=== PATIENT | male | born 1960 | race Two or more races ===

== ENCOUNTER 2016-09-10 10:12 | Inpatient (IN) | payer MEDICARE, OTHER ==
[~2016-09-10] VITALS: Ht 180.3 cm; Wt 105.2 kg
[~2016-09-10 10:12] MED LIST: METF500T4 PO; QUET400T PO; RISP2TAB23 PO; TEMA30CA PO
[2016-09-10 10:29] LABS: BASOPHILS # (AUTO) 0.1 /CMM (0.0-0.2); BASOPHILS % (AUTO) 1.9 % (0.0-2.0); DIFF TOTAL % 100 %; EOSINOPHILS % (AUTO) 0.4 % (0.0-6.0); HEMATOCRIT 47 % (39-51); HEMOGLOBIN 15.3 g/dL (13.5-17.5); LYMPHOCYTES # (AUTO) 0.8 /CMM (0.8-4.8); LYMPHOCYTES % (AUTO) 13.7 % (20.0-44.0); MEAN CORPUSCULAR HEMOGLOBIN 28 PG (26.0-33.0); MEAN CORPUSCULAR HGB CONC 32 g/dl (31.0-36.0); MEAN CORPUSCULAR VOLUME 86 fL (80-96); MONOCYTES # (AUTO) 0.7 /CMM (0.1-1.30); MONOCYTES % (AUTO) 12.8 % (2.0-12.0); NEUTROPHILS # (AUTO) 4.2 /CMM (1.8-8.9); NEUTROPHILS % (AUTO) 71.2 % (43.0-81.0); PLATELET COUNT (AUTO) 145 /CMM (150-450); RED BLOOD CELL COUNT(AUTO) 5.49 MIL/uL (4.5-6.0); WHITE BLOOD COUNT (AUTO) 5.8 K/uL (4.3-11.0)
[2016-09-10 10:36] LABS: ANION GAP 15 (5-14); CALCIUM, SERUM 9.3 mg/dL (8.5-10.1); CARBON DIOXIDE 29 mmol/L (21-32); CHLORIDE 95 mmol/L (98-107); CREATININE 0.9 mg/dL (0.6-1.3); GFR 87 mL/min (>60); GLUCOSE 187 mg/dL (74-106); POTASSIUM 4.3 mmol/L (3.5-5.1); SODIUM SERUM 134 mmol/L (136-145); UREA NITROGEN, BLOOD 15 mg/dL (7-18)
[2016-09-10 10:42] LABS: ACETAMINOPHEN 0 ug/ml (10-30); ALANINE AMINOTRANSFERASE 40 U/L (12-78); ALBUMIN 3.6 g/dL (3.4-5.0); ASPARTATE AMINOTRANSFERASE 24 U/L (15-37); BILIRUBIN,DIRECT 0.2 mg/dL (0.0-0.2); INDIRECT BILIRUBIN 0.8 mg/dL (0.0-1.1); SALICYLATE 1.3 mg/dL (2.8-20.0); TOTAL PROTEIN, SERUM 7.1 g/dL (6.4-8.2)
[2016-09-10] MEDS ORDERED: ESOM40CA PO (10:48)
[2016-09-10] MEDS ORDERED: SITA100T PO (10:48)
[2016-09-10] MEDS ORDERED: VILA10TA PO (10:48)
[2016-09-10] MEDS ORDERED: LISI-603 PO (10:48)
[2016-09-10] MEDS ORDERED: ROSU10TA PO (10:48)
[2016-09-10] MEDS ORDERED: LEVO25TA9 PO (10:48)
[2016-09-10] MEDS ORDERED: VENL150C58 PO (10:48)
[2016-09-10] MEDS ORDERED: DISU250T7 PO (10:48)
[2016-09-10 12:13] LABS: KETONES,URINE >=160 (NEGATIVE); LEUKOCYTE ESTERASE ,URINE Negative (NEGATIVE); PH,URINE 6.5 (5.0-8.0)
[2016-09-10 12:16] LABS: ADD UA MICROSCOPIC YES
[2016-09-10 12:19] LABS: ADD URINE CULTURE NO; WBC,URINE 0-2 /HPF (0-3)
[2016-09-10 14:15] LABS: CANNABINOID, URINE NEGATIVE (NEGATIVE); PHENCYCLIDINE SCREEN,URINE NEGATIVE (NEGATIVE)
[2016-09-10] MEDS ORDERED: DEXTROSE 50%-WATER 50 ML DISP.SYRIN IV PRN (14:30)
[2016-09-10 15:45] VITALS: BP 143/86
[2016-09-10 16:11] VITALS: BP 163/95
[2016-09-10] MEDS ORDERED: MAGNESIUM HYDROXIDE 30 ML UDC PO PRN (16:30)
[2016-09-10] MEDS ORDERED: MAG HYDROX/AL HYDROX/SIMETH 30 ML UDC PO PRN (16:30)
[2016-09-10] MEDS: BLOOD SUGAR DIAGNOSTIC 1 EACH STRIP VI SCH ×2 (16:53→21:13)
[2016-09-10] MEDS: INSULIN REGULAR, HUMAN 100 UNIT/ML 3 ML VIAL SQ PRN (16:56)
[2016-09-10] MEDS: QUETIAPINE FUMARATE 100 MG TABLET PO SCH (17:04)
[2016-09-10] MEDS: risperiDONE 1 MG TABLET PO SCH (17:04)
[2016-09-10] MEDS: METFORMIN 500 MG TABLET PO SCH (17:04)
[2016-09-10] MEDS: clonazePAM 0.5 MG TABLET PO PRN (19:18)
[2016-09-10 20:01] VITALS: BP 108/74
[2016-09-10] MEDS: ATORVASTATIN 10 MG TABLET PO SCH (21:10)
[2016-09-10 23:00] VITALS: BP 133/81
[2016-09-11 07:29] LABS: ALBUMIN 3.4 g/dL (3.4-5.0); CALCIUM, SERUM 9.4 mg/dL (8.5-10.1); TOTAL PROTEIN, SERUM 6.8 g/dL (6.4-8.2)
[2016-09-11 08:00] VITALS: BP 113/75
[2016-09-11] MEDS: INSULIN REGULAR, HUMAN 100 UNIT/ML 3 ML VIAL SQ PRN ×3 (08:24→17:31)
[2016-09-11] MEDS: BLOOD SUGAR DIAGNOSTIC 1 EACH STRIP VI SCH ×4 (08:26→21:24)
[2016-09-11] MEDS: LEVOTHYROXINE SODIUM 25 MCG TABLET PO SCH (08:34)
[2016-09-11] MEDS: PANTOPRAZOLE 40 MG TABLET.DR PO SCH (08:34)
[2016-09-11] MEDS: VENLAFAXINE XR 150 MG CAP.SR.24H PO SCH (08:34)
[2016-09-11] MEDS: METFORMIN 500 MG TABLET PO SCH ×2 (08:34→17:33)
[2016-09-11] MEDS ORDERED: Medication Not On Formulary EA (Rosuvastatin Calcium (Crestor) 10 MG) PO SCH (09:00)
[2016-09-11] MEDS ORDERED: DISULFIRAM 250 MG TABLET PO SCH (09:00)
[2016-09-11] MEDS ORDERED: Medication Not On Formulary EA (Esomeprazole Mag Trihydrate (Nexium) 40 MG) PO SCH (09:00)
[2016-09-11] MEDS: LISINOPRIL (20MG) 20 MG TABLET PO SCH ×2 (09:00→17:33)
[2016-09-11 16:00] VITALS: BP 122/75
[2016-09-11 18:25] VITALS: BP 129/80
[2016-09-11] MEDS: QUETIAPINE FUMARATE 100 MG TABLET PO SCH (18:25)
[2016-09-11] MEDS: risperiDONE 1 MG TABLET PO SCH (18:25)
[2016-09-11 20:10] VITALS: BP 131/73
[2016-09-11] MEDS: ATORVASTATIN 10 MG TABLET PO SCH (21:23)
[2016-09-11] MEDS: TEMAZEPAM 7.5 MG CAPSULE PO PRN (21:28)
[2016-09-11] MEDS: *INSULIN REGULAR(HUMULIN R)HUM 100 UNIT/ML VIAL SQ PRN (21:31)
[2016-09-12] MEDS: BLOOD SUGAR DIAGNOSTIC 1 EACH STRIP VI SCH ×4 (07:30→21:03)
[2016-09-12] MEDS: PANTOPRAZOLE 40 MG TABLET.DR PO SCH (07:30)
[2016-09-12] MEDS: LEVOTHYROXINE SODIUM 25 MCG TABLET PO SCH (07:30)
[2016-09-12 08:00] VITALS: BP 126/72
[2016-09-12] MEDS: LISINOPRIL (20MG) 20 MG TABLET PO SCH (09:27)
[2016-09-12] MEDS: VENLAFAXINE XR 150 MG CAP.SR.24H PO SCH (09:27)
[2016-09-12] MEDS: METFORMIN 500 MG TABLET PO SCH ×2 (09:27→17:57)
[2016-09-12] MEDS: INSULIN REGULAR, HUMAN 100 UNIT/ML 3 ML VIAL SQ PRN ×2 (12:39→18:52)
[2016-09-12] MEDS: clonazePAM 0.5 MG TABLET PO PRN (12:44)
[2016-09-12 12:49] LABS: CHOLESTEROL 205 mg/dL (<200); HDL CHOLESTEROL 56 mg/dL (40-60); LDL 123 mg/dL (0-99); TRIGLYCERIDES 185 mg/dL (30-150)
[2016-09-12 16:09] VITALS: BP 116/67
[2016-09-12] MEDS: ACETAMINOPHEN 325 MG TABLET PO PRN (17:57)
[2016-09-12] MEDS: QUETIAPINE FUMARATE 100 MG TABLET PO SCH (18:04)
[2016-09-12] MEDS: risperiDONE 1 MG TABLET PO SCH (18:04)
[2016-09-12] MEDS: *INSULIN REGULAR(HUMULIN R)HUM 100 UNIT/ML VIAL SQ PRN ×2 (18:28→21:33)
[2016-09-12 20:07] VITALS: BP 90/58
[2016-09-12] MEDS: ATORVASTATIN 10 MG TABLET PO SCH (21:03)
[2016-09-12 22:00] VITALS: BP 100/62
[2016-09-12] MEDS: TEMAZEPAM 7.5 MG CAPSULE PO PRN (22:09)
[2016-09-13] MEDS: BLOOD SUGAR DIAGNOSTIC 1 EACH STRIP VI SCH ×4 (07:15→22:40)
[2016-09-13] MEDS: INSULIN REGULAR, HUMAN 100 UNIT/ML 3 ML VIAL SQ PRN ×2 (07:30→17:36)
[2016-09-13] MEDS: VENLAFAXINE XR 150 MG CAP.SR.24H PO SCH (08:43)
[2016-09-13] MEDS: PANTOPRAZOLE 40 MG TABLET.DR PO SCH (08:43)
[2016-09-13] MEDS: LISINOPRIL (20MG) 20 MG TABLET PO SCH (08:43)
[2016-09-13] MEDS: LEVOTHYROXINE SODIUM 25 MCG TABLET PO SCH (08:43)
[2016-09-13] MEDS: METFORMIN 500 MG TABLET PO SCH ×2 (08:43→16:28)
[2016-09-13] MEDS: clonazePAM 0.5 MG TABLET PO PRN (08:46)
[2016-09-13] MEDS: ACETAMINOPHEN 325 MG TABLET PO PRN ×2 (08:46→16:28)
[2016-09-13 09:01] VITALS: BP 113/62
[2016-09-13 16:00] VITALS: BP 128/68
[2016-09-13] MEDS: risperiDONE 1 MG TABLET PO SCH (17:12)
[2016-09-13] MEDS: QUETIAPINE FUMARATE 100 MG TABLET PO SCH (17:12)
[2016-09-13] MEDS: MENTHOL/CETYLPYRD (CEPACOL) 1 LOZ LOZENGE PO PRN (17:28)
[2016-09-13 20:00] VITALS: BP 101/61
[2016-09-13] MEDS: ATORVASTATIN 10 MG TABLET PO SCH (22:40)
[2016-09-13] MEDS: *INSULIN REGULAR(HUMULIN R)HUM 100 UNIT/ML VIAL SQ PRN (22:43)
[2016-09-13] MEDS: TEMAZEPAM 7.5 MG CAPSULE PO PRN (23:12)
[2016-09-14] MEDS: ACETAMINOPHEN 325 MG TABLET PO PRN ×3 (04:26→21:02)
[2016-09-14 08:00] VITALS: BP 122/60
[2016-09-14] MEDS: BLOOD SUGAR DIAGNOSTIC 1 EACH STRIP VI SCH ×4 (08:02→21:42)
[2016-09-14] MEDS: MENTHOL/CETYLPYRD (CEPACOL) 1 LOZ LOZENGE PO PRN ×2 (08:55→17:19)
[2016-09-14] MEDS: LEVOTHYROXINE SODIUM 25 MCG TABLET PO SCH (08:56)
[2016-09-14] MEDS: PANTOPRAZOLE 40 MG TABLET.DR PO SCH (08:56)
[2016-09-14] MEDS: LISINOPRIL (20MG) 20 MG TABLET PO SCH (08:56)
[2016-09-14] MEDS: METFORMIN 500 MG TABLET PO SCH ×2 (08:56→17:16)
[2016-09-14] MEDS: VENLAFAXINE XR 150 MG CAP.SR.24H PO SCH (08:56)
[2016-09-14] MEDS: clonazePAM 0.5 MG TABLET PO PRN (10:30)
[2016-09-14] MEDS: INSULIN REGULAR, HUMAN 100 UNIT/ML 3 ML VIAL SQ PRN (12:19)
[2016-09-14 16:00] VITALS: BP 115/72
[2016-09-14] MEDS: risperiDONE 1 MG TABLET PO SCH (17:16)
[2016-09-14] MEDS: QUETIAPINE FUMARATE 100 MG TABLET PO SCH (17:16)
[2016-09-14 20:00] VITALS: BP 113/58
[2016-09-14] MEDS: ATORVASTATIN 10 MG TABLET PO SCH (21:01)
[2016-09-14] MEDS: *INSULIN REGULAR(HUMULIN R)HUM 100 UNIT/ML VIAL SQ PRN (21:45)
[2016-09-14] MEDS: TEMAZEPAM 7.5 MG CAPSULE PO PRN (21:51)
[2016-09-15] MEDS: INSULIN REGULAR, HUMAN 100 UNIT/ML 3 ML VIAL SQ PRN ×3 (07:25→17:12)
[2016-09-15] MEDS: BLOOD SUGAR DIAGNOSTIC 1 EACH STRIP VI SCH ×4 (07:25→21:20)
[2016-09-15] MEDS: PANTOPRAZOLE 40 MG TABLET.DR PO SCH (08:19)
[2016-09-15] MEDS: LEVOTHYROXINE SODIUM 25 MCG TABLET PO SCH (08:19)
[2016-09-15] MEDS: VENLAFAXINE XR 150 MG CAP.SR.24H PO SCH (08:19)
[2016-09-15] MEDS: METFORMIN 500 MG TABLET PO SCH ×2 (08:19→17:09)
[2016-09-15] MEDS: LISINOPRIL (20MG) 20 MG TABLET PO SCH (08:20)
[2016-09-15 08:58] VITALS: BP 113/73
[2016-09-15] MEDS: ACETAMINOPHEN 325 MG TABLET PO PRN ×2 (10:11→20:01)
[2016-09-15] MEDS: MENTHOL/CETYLPYRD (CEPACOL) 1 LOZ LOZENGE PO PRN (10:11)
[2016-09-15] MEDS: clonazePAM 0.5 MG TABLET PO PRN (15:31)
[2016-09-15 15:42] VITALS: BP 119/72
[2016-09-15] MEDS: risperiDONE 1 MG TABLET PO SCH (17:09)
[2016-09-15] MEDS: QUETIAPINE FUMARATE 100 MG TABLET PO SCH (17:09)
[2016-09-15 20:00] VITALS: BP 116/67
[2016-09-15] MEDS: TEMAZEPAM 7.5 MG CAPSULE PO PRN (21:07)
[2016-09-15] MEDS: ATORVASTATIN 10 MG TABLET PO SCH (21:07)
[2016-09-15] MEDS: *INSULIN REGULAR(HUMULIN R)HUM 100 UNIT/ML VIAL SQ PRN (21:22)
[2016-09-16] MEDS: PANTOPRAZOLE 40 MG TABLET.DR PO SCH (07:30)
[2016-09-16] MEDS: BLOOD SUGAR DIAGNOSTIC 1 EACH STRIP VI SCH ×4 (07:30→21:13)
[2016-09-16] MEDS: LEVOTHYROXINE SODIUM 25 MCG TABLET PO SCH (07:30)
[2016-09-16 08:00] VITALS: BP 122/69
[2016-09-16] MEDS: VENLAFAXINE XR 150 MG CAP.SR.24H PO SCH (09:57)
[2016-09-16] MEDS: METFORMIN 500 MG TABLET PO SCH ×2 (09:57→17:47)
[2016-09-16] MEDS: LISINOPRIL (20MG) 20 MG TABLET PO SCH (09:59)
[2016-09-16] MEDS: clonazePAM 0.5 MG TABLET PO PRN (14:26)
[2016-09-16 16:14] VITALS: BP 116/71
[2016-09-16] MEDS: INSULIN REGULAR, HUMAN 100 UNIT/ML 3 ML VIAL SQ PRN (17:55)
[2016-09-16] MEDS: QUETIAPINE FUMARATE 100 MG TABLET PO SCH (18:38)
[2016-09-16] MEDS: risperiDONE 1 MG TABLET PO SCH (18:38)
[2016-09-16 19:59] VITALS: BP 120/73
[2016-09-16] MEDS: *INSULIN REGULAR(HUMULIN R)HUM 100 UNIT/ML VIAL SQ PRN (21:15)
[2016-09-16] MEDS: ATORVASTATIN 10 MG TABLET PO SCH (21:15)
[2016-09-16] MEDS: TEMAZEPAM 7.5 MG CAPSULE PO PRN (21:15)
[2016-09-17 08:00] VITALS: BP 124/68
[2016-09-17] MEDS: VENLAFAXINE XR 150 MG CAP.SR.24H PO SCH (08:13)
[2016-09-17] MEDS: LISINOPRIL (20MG) 20 MG TABLET PO SCH (08:13)
[2016-09-17] MEDS: METFORMIN 500 MG TABLET PO SCH ×2 (08:13→16:50)
[2016-09-17] MEDS: LEVOTHYROXINE SODIUM 25 MCG TABLET PO SCH (08:13)
[2016-09-17] MEDS: PANTOPRAZOLE 40 MG TABLET.DR PO SCH (08:13)
[2016-09-17] MEDS: BLOOD SUGAR DIAGNOSTIC 1 EACH STRIP VI SCH ×4 (08:15→21:10)
[2016-09-17] MEDS: INSULIN REGULAR, HUMAN 100 UNIT/ML 3 ML VIAL SQ PRN (08:18)
[2016-09-17] MEDS: clonazePAM 0.5 MG TABLET PO PRN (09:51)
[2016-09-17] MEDS: ACETAMINOPHEN 325 MG TABLET PO PRN (15:30)
[2016-09-17 16:00] VITALS: BP 110/71
[2016-09-17] MEDS: risperiDONE 1 MG TABLET PO SCH (16:49)
[2016-09-17] MEDS: QUETIAPINE FUMARATE 100 MG TABLET PO SCH (16:50)
[2016-09-17 20:26] VITALS: BP 126/90
[2016-09-17] MEDS: ATORVASTATIN 10 MG TABLET PO SCH (21:01)
[2016-09-17] MEDS: TEMAZEPAM 7.5 MG CAPSULE PO PRN (21:02)
[2016-09-17] MEDS: *INSULIN REGULAR(HUMULIN R)HUM 100 UNIT/ML VIAL SQ PRN (21:15)
[2016-09-18] MEDS: BLOOD SUGAR DIAGNOSTIC 1 EACH STRIP VI SCH ×2 (07:54→11:58)
[2016-09-18] MEDS: INSULIN REGULAR, HUMAN 100 UNIT/ML 3 ML VIAL SQ PRN (07:58)
[2016-09-18 08:00] VITALS: BP 134/89
[2016-09-18] MEDS: METFORMIN 500 MG TABLET PO SCH (09:49)
[2016-09-18] MEDS: VENLAFAXINE XR 150 MG CAP.SR.24H PO SCH (09:50)
[2016-09-18] MEDS: LEVOTHYROXINE SODIUM 25 MCG TABLET PO SCH (09:50)
[2016-09-18] MEDS: LISINOPRIL (20MG) 20 MG TABLET PO SCH (09:50)
[2016-09-18] MEDS: PANTOPRAZOLE 40 MG TABLET.DR PO SCH (09:50)
[2016-09-18] MEDS: ACETAMINOPHEN 325 MG TABLET PO PRN (13:03)
[2016-09-18 16:00] VITALS: BP 128/90
== END 2016-09-18 16:30 | disposition home or self-care (01) | DRG 885 ==
LOC: ER 10:14 → GPS 12:47
PROVIDERS: ADMIT Psychiatry & Neurology Psychiatry; ATTEND Internal Medicine
DX: F25.9 Schizoaffective disorder, unspecified (principal); I10 Essential (primary) hypertension; E78.5 Hyperlipidemia, unspecified; K21.9 Gastro-esophageal reflux disease without esophagitis; E11.9 Type 2 diabetes mellitus without complications; E03.9 Hypothyroidism, unspecified; F41.9 Anxiety disorder, unspecified; F32.9 Major depressive disorder, single episode, unspecified; F29 Unspecified psychosis not due to a substance or known physiological condition
CPT/HCPCS: 36415; 80048-TC; 80053-TC; 80061-TC; 80076-TC; 80305; 81000-TC; 82962-TC; 84443-TC; 85025-TC; 87081-TC; A4606; G0480; G6039-TC; J1815; Z7610

== ENCOUNTER 2020-09-06 17:35 | Emergency (ER) | payer MEDICARE, OTHER ==
[~2020-09-06] VITALS: Ht 175.3 cm; Wt 113.4 kg
[~2020-09-06 17:35] MED LIST changes: +DISU250T7 PO; +ESOM40CA PO; +LEVO25TA9 PO; +LISI-603 PO; +METF-440 PO; -METF500T4 PO; -RISP2TAB23 PO; +RISP2TAB85 PO; +ROSU10TA2 PO; +SITA100T PO; +VENL150C58 PO; +VILA10TA PO
[2020-09-06] MEDS ORDERED: ONDA4TAB11 PO (17:55)
[2020-09-06] MEDS ORDERED: LOPE2CAP40 PO (17:55)
[2020-09-06] MEDS ORDERED: ONDANSETRON 4 MG TAB.RAPDIS SL ONE (18:00)
--- NOTE | 2020-09-06 18:00 | NUR ---
BIB RA C/O NAUSEA, VOMITING, AND DIARRHEA X 4 HOURS. vs checked. seen by
[2020-09-06] MEDS ORDERED: ONDANSETRON 4 MG TAB.RAPDIS ONE (18:40)
[2020-09-06 18:44] VITALS: BP 132/68
--- NOTE | 2020-09-06 18:44 | NUR ---
Patient discharged to home in stable condition. Written and verbal after care instructions given. Patient verbalizes understanding of instruction.
== END 2020-09-06 18:45 | disposition home or self-care (01) ==
LOC: ER 17:41
DX: A05.9 Bacterial foodborne intoxication, unspecified (principal); I10 Essential (primary) hypertension; E11.9 Type 2 diabetes mellitus without complications; Z91.013 Allergy to seafood; Z79.899 Other long term (current) drug therapy; Z79.84 Long term (current) use of oral hypoglycemic drugs
CPT/HCPCS: 99283; Q0162